=== PATIENT | female | born 1975 | race Caucasian/White ===

== ENCOUNTER 2022-03-12 18:27 | Inpatient (IN) | payer MEDICAID, SELFPAY ==
[~2022-03-12] VITALS: Ht 182.9 cm; Wt 69.7 kg
[2022-03-12] MEDS ORDERED: NS 1,000 ML IV ONE ×3 (18:40→19:45)
[2022-03-12] MEDS ORDERED: ONDANSETRON 4MG 2ML VIAL IV ONE (19:10)
[2022-03-12 19:18] LABS: BASO % 0.4 % (0.0-1.0); HEMATOCRIT 45.7 % (36.0-47.0); LYMPH # 0.9 10^3/uL (1.5-5.0); LYMPH % 19.5 % (24.0-44.0); MEAN CORPUSCULAR HEMOGLOBIN 29.8 pg (27.0-33.0); MEAN CORPUSCULAR HGB CONC 32.8 g/dl (32.0-36.5); MEAN CORPUSCULAR VOLUME 90.7 fl (80.0-96.0); MONO # 0.5 10^3/uL (0.0-0.8); MONO % 9.9 % (2.0-8.0); NEUTROPHILS # 3.2 10^3/uL (1.5-8.5); PLATELET COUNT, AUTOMATED 218 10^3/uL (150-450); RED BLOOD COUNT 5.04 10^6/uL (4.00-5.40); WHITE BLOOD COUNT 4.6 10^3/uL (4.0-10.0)
[2022-03-12 19:47] LABS: RSV AMPLIFICATION NEGATIVE (NEGATIVE)
[2022-03-12 19:47] LABS: ALBUMIN 4.3 GM/DL (3.2-5.2); BILIRUBIN,DIRECT 0.1 MG/DL (0.0-0.2); BILIRUBIN,TOTAL 0.2 MG/DL (0.2-1.0); CALCIUM LEVEL 12.6 MG/DL (8.5-10.1); CREATININE FOR GFR 1.89 MG/DL (0.55-1.30); GLOMERULAR FILTRATION RATE 30.3 (>58)
[2022-03-12] MEDS ORDERED: HOME MED LIST COMPLETE! XX SCH (20:50)
[2022-03-12] MEDS ORDERED: NS 1,000 ML IV SCH (23:10)
[2022-03-12] MEDS: ACETAMINOPHEN TAB 650MG DOSE (2X325MG) PO PRN (23:41)
[2022-03-13] MEDS: HEPARIN SOD (PORCINE) 5000UNITS/ML 1ML VIAL/SYRINGE SC SCH ×3 (06:00→20:32)
[2022-03-13 07:56] LABS: CALCIUM LEVEL 9.8 MG/DL (8.5-10.1); CREATININE FOR GFR 1.05 MG/DL (0.55-1.30); GLOMERULAR FILTRATION RATE 59.8 (>58)
[2022-03-13 08:45] LABS: INR 1.02; PROTHROMBIN TIME 13.9 SECONDS (12.7-14.5)
[2022-03-13 08:46] LABS: PARTIAL THROMBOPLASTIN TIME 31.2 SECONDS (25.9-37.0)
[2022-03-13 08:48] LABS: D-DIMER QUANT 835.21 ng/ml (<500)
[2022-03-13 09:15] LABS: ALBUMIN 2.7 GM/DL (3.2-5.2); ALT/SGPT 12 U/L (12-78); BILIRUBIN,DIRECT < 0.1 MG/DL (0.0-0.2); BILIRUBIN,TOTAL 0.1 MG/DL (0.2-1.0); C REACTIVE PROTEIN QUANTITATIV 0.58 MG/DL (0.00-0.30); FERRITIN 91 NG/ML (8-252); LDH LACTATE DEHYDROGENASE 147 U/L (84-246); TOTAL PROTEIN 5.1 GM/DL (6.4-8.2)
[2022-03-13 10:29] VITALS: BP 98/53
[2022-03-13] MEDS ORDERED: REMDESIVIR 200 MG in NS 250 ML IV ONE (12:00)
[2022-03-13 12:03] VITALS: BP 105/59
[2022-03-13] MEDS ORDERED: SODIUM CHLORIDE 0.9% INJ 10 ML SYR IV ONE (14:00)
[2022-03-13 16:25] VITALS: BP 104/61
[2022-03-13] MEDS: ACETAMINOPHEN TAB 650MG DOSE (2X325MG) PO PRN ×2 (16:38→21:50)
[2022-03-13 18:07] LABS: BLOOD UREA NITROGEN 19 MG/DL (7-18); CALCIUM LEVEL 9.8 MG/DL (8.5-10.1); CARBON DIOXIDE LEVEL 22 MEQ/L (21-32); CHLORIDE LEVEL 114 MEQ/L (98-107); CREATININE FOR GFR 0.97 MG/DL (0.55-1.30); GLOMERULAR FILTRATION RATE > 60.0 (>58); GLUCOSE, FASTING 95 MG/DL (70-100); POTASSIUM SERUM 4.2 MEQ/L (3.5-5.1); SODIUM LEVEL 141 MEQ/L (136-145)
[2022-03-13 20:00] VITALS: BP 104/60
[2022-03-13] MEDS ORDERED: FAMOTIDINE 20 MG TAB PO SCH (21:00)
[2022-03-14 04:00] VITALS: BP 104/66
[2022-03-14] MEDS: HEPARIN SOD (PORCINE) 5000UNITS/ML 1ML VIAL/SYRINGE SC SCH ×3 (05:55→21:35)
[2022-03-14 06:43] LABS: BLOOD UREA NITROGEN 15 MG/DL (7-18); CALCIUM LEVEL 9.5 MG/DL (8.5-10.1); CARBON DIOXIDE LEVEL 22 MEQ/L (21-32); CHLORIDE LEVEL 117 MEQ/L (98-107); GLOMERULAR FILTRATION RATE > 60.0 (>58); GLUCOSE, FASTING 79 MG/DL (70-100); POTASSIUM SERUM 4.1 MEQ/L (3.5-5.1); SODIUM LEVEL 146 MEQ/L (136-145)
[2022-03-14 08:00] VITALS: BP 102/55
[2022-03-14 08:33] LABS: ALBUMIN 2.7 GM/DL (3.2-5.2)
[2022-03-14] MEDS: FAMOTIDINE 20 MG TAB PO SCH ×2 (10:27→21:34)
[2022-03-14 11:14] LABS: TOTAL 25(OH) VITAMIN D 52.6 NG/ML (30.0-100.0)
[2022-03-14 12:00] VITALS: BP 96/52
[2022-03-14] MEDS: ONDANSETRON 4MG TAB PO PRN ×2 (13:09→21:46)
[2022-03-14 13:44] LABS: HEMATOCRIT 33.8 % (36.0-47.0); MEAN CORPUSCULAR HEMOGLOBIN 30.1 pg (27.0-33.0); MEAN CORPUSCULAR HGB CONC 32.8 g/dl (32.0-36.5); MEAN CORPUSCULAR VOLUME 91.6 fl (80.0-96.0); PLATELET COUNT, AUTOMATED 134 10^3/uL (150-450); RED BLOOD COUNT 3.69 10^6/uL (4.00-5.40); WHITE BLOOD COUNT 2.5 10^3/uL (4.0-10.0)
[2022-03-14 13:49] LABS: HEMOGLOBIN 11.1 g/dl (12.0-15.5)
[2022-03-14 14:35] LABS: ALBUMIN 2.5 GM/DL (3.2-5.2); ALT/SGPT 11 U/L (12-78); BILIRUBIN,TOTAL < 0.1 MG/DL (0.2-1.0); BLOOD UREA NITROGEN 13 MG/DL (7-18); CALCIUM LEVEL 9.4 MG/DL (8.5-10.1); CARBON DIOXIDE LEVEL 25 MEQ/L (21-32); CHLORIDE LEVEL 113 MEQ/L (98-107); CREATININE FOR GFR 0.89 MG/DL (0.55-1.30); GLOMERULAR FILTRATION RATE > 60.0 (>58); GLUCOSE, FASTING 100 MG/DL (70-100); POTASSIUM SERUM 3.9 MEQ/L (3.5-5.1); SODIUM LEVEL 142 MEQ/L (136-145); TOTAL PROTEIN 4.9 GM/DL (6.4-8.2)
[2022-03-14] MEDS: REMDESIVIR 100 MG in NS 250 ML IV SCH (14:50)
[2022-03-14] MEDS: SODIUM CHLORIDE 0.9% INJ 10 ML SYR IV SCH (15:30)
[2022-03-14 16:00] VITALS: BP 104/63
[2022-03-14] MEDS ORDERED: ONDA-83 PO (17:31)
[2022-03-14] MEDS ORDERED: FAMO20TA PO (17:31)
[2022-03-14 17:34] LABS: HEMATOCRIT 32.6 % (36.0-47.0); HEMOGLOBIN 10.6 g/dl (12.0-15.5); MEAN CORPUSCULAR HEMOGLOBIN 30.1 pg (27.0-33.0); MEAN CORPUSCULAR HGB CONC 32.5 g/dl (32.0-36.5); MEAN CORPUSCULAR VOLUME 92.6 fl (80.0-96.0); PLATELET COUNT, AUTOMATED 135 10^3/uL (150-450); RED BLOOD COUNT 3.52 10^6/uL (4.00-5.40); WHITE BLOOD COUNT 2.3 10^3/uL (4.0-10.0)
[2022-03-14 20:00] VITALS: BP 92/52
[2022-03-14] MEDS: ACETAMINOPHEN TAB 650MG DOSE (2X325MG) PO PRN (21:34)
[2022-03-14 21:42] VITALS: BP 86/52
[2022-03-14] MEDS ORDERED: NS 500 ML IV ONE (21:55)
[2022-03-14] MEDS ORDERED: KETOROLAC 30 MG/ML 1ML VIAL IV ONE (21:55)
[2022-03-15] MEDS ORDERED: NS 1,000 ML IV ONE (00:35)
[2022-03-15] MEDS ORDERED: NS 0.45% 1,000 ML IV ONE ×2 (00:40→02:30)
[2022-03-15 02:15] VITALS: BP 82/56
[2022-03-15 02:55] LABS: HEMATOCRIT 30.6 % (36.0-47.0); HEMOGLOBIN 9.9 g/dl (12.0-15.5); MEAN CORPUSCULAR HEMOGLOBIN 30.1 pg (27.0-33.0); MEAN CORPUSCULAR HGB CONC 32.4 g/dl (32.0-36.5); PLATELET COUNT, AUTOMATED 126 10^3/uL (150-450); RED BLOOD COUNT 3.29 10^6/uL (4.00-5.40); WHITE BLOOD COUNT 2.3 10^3/uL (4.0-10.0)
[2022-03-15 03:47] LABS: ALBUMIN 2.3 GM/DL (3.2-5.2); ALT/SGPT 15 U/L (12-78); BILIRUBIN,TOTAL < 0.1 MG/DL (0.2-1.0); BLOOD UREA NITROGEN 12 MG/DL (7-18); CALCIUM LEVEL 8.6 MG/DL (8.5-10.1); CARBON DIOXIDE LEVEL 24 MEQ/L (21-32); CHLORIDE LEVEL 113 MEQ/L (98-107); CREATININE FOR GFR 0.83 MG/DL (0.55-1.30); FREE T4 0.96 NG/DL (0.76-1.46); GLOMERULAR FILTRATION RATE > 60.0 (>58); GLUCOSE, FASTING 80 MG/DL (70-100); MAGNESIUM LEVEL 1.5 MG/DL (1.8-2.4); POTASSIUM SERUM 3.9 MEQ/L (3.5-5.1); SODIUM LEVEL 141 MEQ/L (136-145); TOTAL PROTEIN 4.4 GM/DL (6.4-8.2)
[2022-03-15 04:00] VITALS: BP 82/50
[2022-03-15] MEDS ORDERED: MAGNESIUM OXIDE 400MG TAB (MAG-OX) PO ONE (04:15)
[2022-03-15 04:30] VITALS: BP 92/62
[2022-03-15] MEDS: HEPARIN SOD (PORCINE) 5000UNITS/ML 1ML VIAL/SYRINGE SC SCH ×2 (06:00→14:00)
[2022-03-15] MEDS ORDERED: MAG SULF 1GM/100ML (MAG RUN) 1 GM in IV 1 EA IV ONE (08:00)
[2022-03-15] MEDS ORDERED: MAG SULF 1GM/100ML (MAG RUN) 1 GM in IV 1 EA IV SCH (08:00)
[2022-03-15] MEDS: FAMOTIDINE 20 MG TAB PO SCH (09:42)
[2022-03-15 09:48] VITALS: BP 103/63
[2022-03-15] MEDS: ONDANSETRON 4MG TAB PO PRN (11:12)
[2022-03-15 12:00] VITALS: BP 92/55
[2022-03-15] MEDS: SODIUM CHLORIDE 0.9% INJ 10 ML SYR IV SCH (15:03)
[2022-03-15] MEDS: REMDESIVIR 100 MG in NS 250 ML IV SCH (15:03)
== END 2022-03-15 18:22 | disposition home or self-care (01) | DRG 137 ==
LOC: M ED 18:27 → M ED INP 23:08 → ENRESERV 03-13 08:37 → M PCU 03-13 10:22 → M 4MAIN 03-14 19:37
PROVIDERS: ADMIT Internal Medicine; ATTEND Internal Medicine
PROC: XW033E5 Introduction of Remdesivir Anti-infective into Peripheral Vein, Percutaneous Approach, New Technology Group 5 (ICD-10-PCS; principal; 2022-03-13)
DX: U07.1 COVID-19 (principal); D61.818 Other pancytopenia; E83.52 Hypercalcemia; R19.7 Diarrhea, unspecified; K31.89 Other diseases of stomach and duodenum; F17.210 Nicotine dependence, cigarettes, uncomplicated; Z87.442 Personal history of urinary calculi; K21.9 Gastro-esophageal reflux disease without esophagitis; Z91.040 Latex allergy status; Z83.41 Family history of multiple endocrine neoplasia [MEN] syndrome

== ENCOUNTER 2022-04-24 17:19 | Emergency (ER) | payer OTHER ==
[~2022-04-24] VITALS: Ht 182.9 cm; Wt 70.5 kg
[~2022-04-24 17:19] MED LIST: FAMO20TA PO; ONDA-83 PO
[2022-04-24 17:20] VITALS: BP 110/60
[2022-04-24 18:15] LABS: BASO % 0.4 % (0.0-1.0); EOS # 0.1 10^3/uL (0.0-0.5); EOS % 1.3 % (0.0-3.0); HEMATOCRIT 34.8 % (36.0-47.0); HEMOGLOBIN 11.3 g/dl (12.0-15.5); LYMPH # 1.4 10^3/uL (1.5-5.0); LYMPH % 14.4 % (24.0-44.0); MEAN CORPUSCULAR HEMOGLOBIN 29.8 pg (27.0-33.0); MEAN CORPUSCULAR HGB CONC 32.5 g/dl (32.0-36.5); MEAN CORPUSCULAR VOLUME 91.8 fl (80.0-96.0); MONO # 0.6 10^3/uL (0.0-0.8); MONO % 6.2 % (2.0-8.0); NEUTROPHILS # 7.3 10^3/uL (1.5-8.5); NEUTROPHILS % 77.5 % (36.0-66.0); PLATELET COUNT, AUTOMATED 314 10^3/uL (150-450); RED BLOOD COUNT 3.79 10^6/uL (4.00-5.40); WHITE BLOOD COUNT 9.5 10^3/uL (4.0-10.0)
[2022-04-24 19:58] LABS: HCG, SERUM QUALITATIVE NEGATIVE (NEGATIVE)
[2022-04-24 20:07] LABS: ALBUMIN 3.5 GM/DL (3.2-5.2); ALT/SGPT 9 U/L (12-78); BILIRUBIN,TOTAL 0.5 MG/DL (0.2-1.0); BLOOD UREA NITROGEN 11 MG/DL (7-18); CALCIUM LEVEL 11.4 MG/DL (8.5-10.1); CARBON DIOXIDE LEVEL 24 MEQ/L (21-32); CHLORIDE LEVEL 108 MEQ/L (98-107); CREATININE FOR GFR 0.96 MG/DL (0.55-1.30); GLOMERULAR FILTRATION RATE > 60.0 (>58); GLUCOSE, FASTING 83 MG/DL (70-100); SODIUM LEVEL 137 MEQ/L (136-145); TOTAL PROTEIN 7.2 GM/DL (6.4-8.2)
[2022-04-24 20:09] LABS: CK-MB VALUE MASS < 1.0 NG/ML (<3.6); CPK CREATINE PHOSPHOKINASE 29 U/L (26-192); MB/CK RELATIVE INDEX 3.45 (< OR =4)
[2022-04-24] MEDS ORDERED: NS 1,000 ML IV ONE (20:50)
[2022-04-24 21:57] LABS: FREE T4 1.15 NG/DL (0.76-1.46); THYROID STIMULATING HORMONE 0.943 uIU/ML (0.358-3.740)
[2022-04-24] MEDS ORDERED: ISOVUE-370 76% 100ML VIAL As Ordered ONE (22:00)
[2022-04-24] MEDS ORDERED: ONDANSETRON 4MG 2ML VIAL IV ONE (23:15)
[2022-04-24] MEDS ORDERED: HYDR-3363 PO (23:34)
[2022-04-24] MEDS ORDERED: PROT1TAB2 PO (23:34)
== END 2022-04-24 23:46 | disposition home or self-care (01) ==
LOC: M ED 17:19
DX: R07.89 Other chest pain (principal); E04.1 Nontoxic single thyroid nodule; R11.0 Nausea; E83.52 Hypercalcemia; D64.9 Anemia, unspecified; E21.3 Hyperparathyroidism, unspecified; Z91.040 Latex allergy status; F17.200 Nicotine dependence, unspecified, uncomplicated; Z79.899 Other long term (current) drug therapy
CPT/HCPCS: 71275; 80053; 82330; 82550; 82553; 84439; 84443; 84484; 84703; 85025; 85379; 93005; 96374; 99284; J2405; Q9967